=== PATIENT | male | born 1940 | race Caucasian/White ===

== ENCOUNTER 2022-04-27 00:22 | Inpatient (IN) ==
[2022-04-27 01:35] LABS: Basophils % 0.3 %; Eosinophils % 0.3 %; Hematocrit 36.8 % (37.5-50.1); Hemoglobin 12.1 g/dL (12.9-16.9); Immature Granulocytes % 0.4 % (0-4); Lymphocytes # 1.3 K/mcL (0.6-4.6); Lymphocytes % 10.8 %; Mean Corpuscular HGB Conc 32.9 g/dL (31.6-35.5); Mean Corpuscular Hemoglobin 28.9 pg (28.0-33.3); Mean Platelet Volume 9.5 fL (9.4-12.4); Monocytes # 0.7 K/mcL (0.0-1.3); Monocytes % 5.7 %; Neutrophils # 9.6 K/mcL (1.6-8.9); Platelet Count 248 K/mcL (140-400); Red Blood Count 4.18 M/mcL (4.19-5.50); Red Cell Distribution Width 12.3 % (11.5-14.5); Segmented Neutrophils % 82.5 %; White Blood Count 11.7 K/mcL (4.3-11.1)
[2022-04-27] MEDS: *HR* Labetalol 20 MG/4 ML SYRINGE IVP PRN ×2 (01:40→11:05)
[2022-04-27 02:02] LABS: Alanine Aminotransferase 15 Units/L (7-52); Albumin 3.4 g/dL (3.5-5.7); Albumin/Globulin Ratio 0.9 (1.1-2.2); Alkaline Phosphatase 59 Units/L (34-104); Aspartate Amino Transferase 15 Units/L (13-39); BUN/Creatinine Ratio 30 (6-26); Bilirubin,Total 0.9 mg/dL (0.3-1.0); Blood Urea Nitrogen 24 mg/dL (8-23); Carbon Dioxide 24 mEq/L (23-29); Chloride 81 mEq/L (98-107); Globulin 3.8 g/dL (2.4-3.5); Glucose 128 mg/dL (70-105); Osmolality,Calculated 340 (280-300); Sodium 162 mEq/L (136-145); Total Protein 7.2 g/dL (6.4-8.9); Troponin I 0.22 ng/mL (< 0.04); eGFR For African Americans > 60 (> 60); eGFR For Non-African Americans > 60 (> 60)
[2022-04-27] MEDS ORDERED: Iopamidol - 370 500 ML MLS IVP ONE (02:29)
[2022-04-27] MEDS ORDERED: 0.9 % Sodium Chloride 1,000 ML IV ONE (02:29)
[2022-04-27] MEDS ORDERED: Nitroglycerin 1 INCH/GM PACKET TP ONE (02:30)
[2022-04-27] MEDS ORDERED: Aspirin 81 MG TAB.CHEW PO ONE (02:30)
[2022-04-27 02:49] LABS: Bilirubin,Urine Negative (Negative); Blood,Urine Moderate (Negative); Clarity,Urine Clear (Clear); Color,Urine Light-Yellow (Yellow); Glucose,Urine (UA) Normal (Normal); Ketones,Urine 10 mg/dL (Negative); Leukocyte Esterase,Urine Negative (Negative); Mucus,Urine Few per lpf (None-Few); Nitrite,Urine Negative (Negative); PH,Urine 7.5 pH Units (5.0-8.0); Protein,Urine >=600 mg/dL (Neg-Trace); RBC,Urine 15-30 per hpf (0-3); Squamous Epithelial Cell,Urine Few per hpf (None-Few); Urobilinogen,Urine Normal (Normal); WBC,Urine 0-3 per hpf (0-3)
[2022-04-27] MEDS ORDERED: methylPREDNISolone 125 MG/2 ML VIAL IVP ONE (03:27)
[2022-04-27] MEDS ORDERED: Furosemide 40 MG/4 ML VIAL IVP ONE ×3 (03:27→13:57)
[2022-04-27] MEDS ORDERED: Ipratropium/Albuterol Neb 3 ML IH ONE (03:27)
[2022-04-27] MEDS ORDERED: Furosemide 20 MG/2 ML VIAL IVP ONE (03:30)
[2022-04-27] MEDS ORDERED: Furosemide 60 MG in 0.9 % Sodium Chloride 50 ML IV ONE (03:34)
[2022-04-27] MEDS ORDERED: *HR* Heparin 5,000 UNIT/ML VIAL IVP ONE ×2 (04:38→05:09)
[2022-04-27] MEDS ORDERED: Heparin 25,000UNIT/250ML 1/2NS 25,000 UNIT/250 ML IV.SOLN IVC SCH (04:45)
[2022-04-27] MEDS ORDERED: Naloxone 0.4 MG/ML INJ IVP PRN (04:53)
[2022-04-27] MEDS ORDERED: *HR* Heparin 5,000 UNIT/ML VIAL IVP PRN (05:09)
[2022-04-27] MEDS: Heparin 25,000UNIT/250ML 1/2NS 25,000 UNIT/250 ML IV.SOLN IVC SCH (05:20)
[2022-04-27] MEDS ORDERED: Perflutren Lipid Microsphere 1.3 ML in 0.9 % Sodium Chloride 8.7 ML IVP PRN (05:21)
[2022-04-27] MEDS: Ondansetron 4 MG/2 ML VIAL IVP PRN ×2 (05:25→13:55)
[2022-04-27 05:31] LABS: Heparin anti-factor XA UFH < 0.04 IU/mL (0.30-0.70); INR 1.3; Prothrombin Time 14.4 Seconds (9.4-12.1)
[2022-04-27 05:54] LABS: Alanine Aminotransferase 17 Units/L (7-52); Albumin 3.8 g/dL (3.5-5.7); Albumin/Globulin Ratio 0.8 (1.1-2.2); Alkaline Phosphatase 75 Units/L (34-104); Aspartate Amino Transferase 21 Units/L (13-39); BUN/Creatinine Ratio 26 (6-26); Bilirubin,Total 1.4 mg/dL (0.3-1.0); Blood Urea Nitrogen 26 mg/dL (8-23); Calcium 9.7 mg/dL (8.6-10.3); Carbon Dioxide 28 mEq/L (23-29); Chloride 97 mEq/L (98-107); Globulin 4.5 g/dL (2.4-3.5); Glucose 176 mg/dL (70-105); Magnesium 1.7 mg/dL (1.6-2.6); Osmolality,Calculated 297 (280-300); Phosphorous 2.5 mg/dL (2.7-4.5); Sodium 139 mEq/L (136-145); Total Protein 8.3 g/dL (6.4-8.9); Troponin I 1.13 ng/mL (< 0.04); eGFR For African Americans > 60 (> 60); eGFR For Non-African Americans > 60 (> 60)
[2022-04-27 06:04] LABS: Adenovirus Not Detected (Not Detect); Bordetella Pertussis Not Detected (Not Detect); Chlamydophila pneumoniae Not Detected (Not Detect); Coronavirus 229E Not Detected (Not Detect); Coronavirus HKU1 Not Detected (Not Detect); Coronavirus NL63 Not Detected (Not Detect); Coronavirus OC43 Not Detected (Not Detect); Human Metapneumovirus Not Detected (Not Detect); Human Rhinovirus/Enterovirus Not Detected (Not Detect); Influenza A Subtype 2009 H1 Not Detected (Not Detect); Influenza B Not Detected (Not Detect); Mycoplasma pneumoniae Not Detected (Not Detect); Parainfluenza Virus 1 Not Detected (Not Detect); Parainfluenza Virus 2 Not Detected (Not Detect); Parainfluenza Virus 3 Not Detected (Not Detect); Parainfluenza Virus 4 Not Detected (Not Detect); Respiratory Syncytial Virus Not Detected (Not Detect); SARS-CoV-2 Not Detected (Not Detect)
[2022-04-27 08:20] LABS: Hematocrit 38.9 % (37.5-50.1); Hemoglobin 12.4 g/dL (12.9-16.9); Mean Corpuscular HGB Conc 31.9 g/dL (31.6-35.5); Mean Corpuscular Hemoglobin 28.2 pg (28.0-33.3); Mean Corpuscular Volume 88.6 fL (83.0-100.0); Mean Platelet Volume 9.7 fL (9.4-12.4); Platelet Count 271 K/mcL (140-400); Red Blood Count 4.39 M/mcL (4.19-5.50); Red Cell Distribution Width 12.3 % (11.5-14.5)
[2022-04-27 08:21] LABS: White Blood Count 17.7 K/mcL (4.3-11.1)
[2022-04-27 08:30] LABS: Heparin anti-factor XA UFH 0.38 IU/mL (0.30-0.70)
[2022-04-27 08:31] LABS: INR 1.3; Prothrombin Time 14.3 Seconds (9.4-12.1)
[2022-04-27] MEDS ORDERED: traZODone 50 MG TABLET PO SCH (09:00)
[2022-04-27] MEDS ORDERED: Furosemide 40 MG/4 ML VIAL ONE (10:18)
[2022-04-27] MEDS: Furosemide 40 MG/4 ML VIAL IVP SCH ×2 (10:32→17:13)
[2022-04-27] MEDS: Pantoprazole 40 MG VIAL IVP SCH ×2 (10:33→17:14)
[2022-04-27] MEDS: Sucralfate 1 GM TABLET PO SCH ×2 (10:44→17:13)
[2022-04-27] MEDS: carvediloL 25 MG TABLET PO SCH ×2 (10:45→17:13)
[2022-04-27] MEDS: Aspirin 81 MG TAB.CHEW PO SCH (10:45)
[2022-04-27] MEDS: Carbidopa/Levodopa 25/100 TABLET PO SCH ×3 (10:57→20:07)
[2022-04-27] MEDS ORDERED: Morphine Sulfate 2 MG/ML SYRINGE IVP ONE (13:33)
[2022-04-27] MEDS ORDERED: *HR* FentaNYL (PF) 100 MCG/2 ML VIAL ONE (14:36)
[2022-04-27] MEDS ORDERED: *HR* Heparin 10,000 UNIT/10 ML VIAL ONE ×2 (14:36→15:00)
[2022-04-27] MEDS ORDERED: 0.9 % Sodium Chloride 1,000 ML ONE (14:36)
[2022-04-27] MEDS ORDERED: Heparin 1,000 UNITS/500 mL 500 ML ONE (14:36)
[2022-04-27] MEDS ORDERED: *HR* Midazolam HCl 2 MG/2 ML VIAL ONE (14:36)
[2022-04-27] MEDS ORDERED: Iopamidol - 370 200 ML INFUS..BTL ONE (14:36)
[2022-04-27] MEDS ORDERED: Nitroglycerin 1,000 MCG/5 ML VIAL IV ONE (14:37)
[2022-04-27] MEDS ORDERED: Ondansetron 4 MG/2 ML VIAL IVP PRN (15:02)
[2022-04-27] MEDS ORDERED: Prochlorperazine 10 MG/2 ML VIAL IVP PRN (15:03)
[2022-04-27] MEDS ORDERED: 0.9 % Sodium Chloride 500 ML IVC SCH (17:00)
[2022-04-27] MEDS: Piperacillin/Tazobactam 3.375 GM in 0.9 % Sodium Chloride Mini Bag 100 ML IVPB SCH (17:12)
[2022-04-27] MEDS ORDERED: polyethylene glycoL 3350 17 GM POWD.PACK PO PRN (19:06)
[2022-04-27] MEDS: Azithromycin 500 MG in 0.9 % Sodium Chloride 250 ML IVPB SCH (19:50)
[2022-04-27] MEDS ORDERED: Azithromycin 500 MG VIAL ONE (19:59)
[2022-04-27] MEDS: ALPRAZolam 0.5 MG TABLET PO SCH (20:06)
[2022-04-27] MEDS: hydrALAZINE 25 MG TABLET PO SCH (20:07)
[2022-04-28 04:25] LABS: Hematocrit 34.2 % (37.5-50.1); Mean Corpuscular HGB Conc 32.2 g/dL (31.6-35.5); Mean Corpuscular Hemoglobin 28.5 pg (28.0-33.3); Mean Corpuscular Volume 88.6 fL (83.0-100.0); Mean Platelet Volume 9.7 fL (9.4-12.4); Platelet Count 237 K/mcL (140-400); Red Blood Count 3.86 M/mcL (4.19-5.50); Red Cell Distribution Width 12.6 % (11.5-14.5); White Blood Count 15.6 K/mcL (4.3-11.1)
[2022-04-28 04:51] LABS: Magnesium 2.2 mg/dL (1.6-2.6); Phosphorous 4.3 mg/dL (2.7-4.5); Potassium 3.2 mEq/L (3.5-5.1)
[2022-04-28] MEDS: Pantoprazole 40 MG VIAL IVP SCH ×2 (06:25→17:35)
[2022-04-28] MEDS: ALPRAZolam 0.5 MG TABLET PO SCH ×2 (09:06→20:54)
[2022-04-28] MEDS: carvediloL 25 MG TABLET PO SCH (09:06)
[2022-04-28] MEDS: Furosemide 40 MG/4 ML VIAL IVP SCH (09:07)
[2022-04-28] MEDS: Aspirin 81 MG TAB.CHEW PO SCH (09:07)
[2022-04-28] MEDS: Carbidopa/Levodopa 25/100 TABLET PO SCH ×3 (09:07→23:10)
[2022-04-28] MEDS: Piperacillin/Tazobactam 3.375 GM in 0.9 % Sodium Chloride Mini Bag 100 ML IVPB SCH ×4 (09:07→23:09)
[2022-04-28] MEDS: hydrALAZINE 25 MG TABLET PO SCH ×3 (09:07→23:09)
[2022-04-28] MEDS: Sucralfate 1 GM TABLET PO SCH ×2 (09:07→17:34)
[2022-04-28 17:09] LABS: Protein/Creatinine Ratio,Urine 2.08 mg/mg (0.00-0.20); Sodium, Urine 61.8 mEq/L
[2022-04-28] MEDS: carvediloL 6.25 MG TABLET PO SCH (17:34)
[2022-04-28] MEDS: Azithromycin 500 MG in 0.9 % Sodium Chloride 250 ML IVPB SCH (20:53)
[2022-04-28] MEDS: Clotrimazole 1% CRM 15 GM TUBE TP SCH (21:00)
[2022-04-29] MEDS: Heparin 25,000UNIT/250ML 1/2NS 25,000 UNIT/250 ML IV.SOLN IVC SCH ×2 (01:36→07:29)
[2022-04-29 05:13] LABS: Hematocrit 32.2 % (37.5-50.1); Hemoglobin 10.4 g/dL (12.9-16.9); Mean Corpuscular HGB Conc 32.3 g/dL (31.6-35.5); Mean Corpuscular Hemoglobin 28.5 pg (28.0-33.3); Mean Corpuscular Volume 88.2 fL (83.0-100.0); Mean Platelet Volume 10.1 fL (9.4-12.4); Platelet Count 221 K/mcL (140-400); Red Blood Count 3.65 M/mcL (4.19-5.50); Red Cell Distribution Width 12.6 % (11.5-14.5); White Blood Count 15.3 K/mcL (4.3-11.1)
[2022-04-29] MEDS: Pantoprazole 40 MG VIAL IVP SCH ×2 (05:13→17:02)
[2022-04-29 05:32] LABS: BUN/Creatinine Ratio 29 (6-26); Blood Urea Nitrogen 40 mg/dL (8-23); Calcium 8.4 mg/dL (8.6-10.3); Carbon Dioxide 29 mEq/L (23-29); Chloride 99 mEq/L (98-107); Glucose 104 mg/dL (70-105); Osmolality,Calculated 296 (280-300); Sodium 138 mEq/L (136-145); eGFR For African Americans > 60 (> 60); eGFR For Non-African Americans 50 (> 60)
[2022-04-29 05:33] LABS: Complement C3 109 mg/dL (87-200)
[2022-04-29] MEDS ORDERED: Potassium Chloride Elixir 20 MEQ/15 ML UDC PO ONE (06:27)
[2022-04-29] MEDS: Aspirin 81 MG TAB.CHEW PO SCH (07:28)
[2022-04-29] MEDS: carvediloL 6.25 MG TABLET PO SCH ×3 (07:28→17:34)
[2022-04-29] MEDS: Sucralfate 1 GM TABLET PO SCH ×2 (07:28→16:52)
[2022-04-29] MEDS: Carbidopa/Levodopa 25/100 TABLET PO SCH ×3 (07:28→20:23)
[2022-04-29] MEDS: ALPRAZolam 0.5 MG TABLET PO SCH ×2 (07:29→20:23)
[2022-04-29] MEDS: hydrALAZINE 25 MG TABLET PO SCH ×3 (07:29→23:52)
[2022-04-29] MEDS: Clotrimazole 1% CRM 15 GM TUBE TP SCH ×2 (07:29→20:24)
[2022-04-29] MEDS: Piperacillin/Tazobactam 3.375 GM in 0.9 % Sodium Chloride Mini Bag 100 ML IVPB SCH ×3 (07:39→23:52)
[2022-04-29] MEDS ORDERED: Perflutren Lipid Microsphere 1.3 ML in 0.9 % Sodium Chloride 8.7 ML IVP PRN (10:40)
[2022-04-29] MEDS: Azithromycin 500 MG in 0.9 % Sodium Chloride 250 ML IVPB SCH (20:22)
[2022-04-29] MEDS: Melatonin 3 MG TABLET PO PRN (23:52)
[2022-04-30 03:48] LABS: BUN/Creatinine Ratio 31 (6-26); Blood Urea Nitrogen 36 mg/dL (8-23); Calcium 8.6 mg/dL (8.6-10.3); Carbon Dioxide 29 mEq/L (23-29); Chloride 101 mEq/L (98-107); Glucose 94 mg/dL (70-105); Osmolality,Calculated 294 (280-300); Potassium 3.3 mEq/L (3.5-5.1); Sodium 138 mEq/L (136-145); eGFR For African Americans > 60 (> 60); eGFR For Non-African Americans > 60 (> 60)
[2022-04-30] MEDS: Pantoprazole 40 MG VIAL IVP SCH ×2 (06:47→17:02)
[2022-04-30] MEDS: Heparin 25,000UNIT/250ML 1/2NS 25,000 UNIT/250 ML IV.SOLN IVC SCH (06:47)
[2022-04-30] MEDS: hydrALAZINE 25 MG TABLET PO SCH ×2 (09:16→17:03)
[2022-04-30] MEDS: ALPRAZolam 0.5 MG TABLET PO SCH ×2 (09:16→19:56)
[2022-04-30] MEDS: carvediloL 6.25 MG TABLET PO SCH ×2 (09:17→17:02)
[2022-04-30] MEDS: Sucralfate 1 GM TABLET PO SCH ×2 (09:17→17:02)
[2022-04-30] MEDS: Carbidopa/Levodopa 25/100 TABLET PO SCH ×3 (09:17→20:52)
[2022-04-30] MEDS: Aspirin 81 MG TAB.CHEW PO SCH (09:17)
[2022-04-30] MEDS: Piperacillin/Tazobactam 3.375 GM in 0.9 % Sodium Chloride Mini Bag 100 ML IVPB SCH ×2 (09:18→17:02)
[2022-04-30] MEDS: Spironolactone 25 MG TABLET PO SCH (12:40)
[2022-04-30] MEDS: Clotrimazole 1% CRM 15 GM TUBE TP SCH ×2 (17:04→20:52)
[2022-04-30] MEDS: Melatonin 3 MG TABLET PO PRN (19:56)
[2022-04-30] MEDS: Azithromycin 500 MG in 0.9 % Sodium Chloride 250 ML IVPB SCH (19:57)
[2022-05-01] MEDS: Piperacillin/Tazobactam 3.375 GM in 0.9 % Sodium Chloride Mini Bag 100 ML IVPB SCH ×3 (01:12→16:58)
[2022-05-01] MEDS: hydrALAZINE 25 MG TABLET PO SCH ×4 (01:13→23:12)
[2022-05-01] MEDS: Heparin 25,000UNIT/250ML 1/2NS 25,000 UNIT/250 ML IV.SOLN IVC SCH ×2 (01:21→20:03)
[2022-05-01 03:03] LABS: BUN/Creatinine Ratio 33 (6-26); Blood Urea Nitrogen 36 mg/dL (8-23); Calcium 8.7 mg/dL (8.6-10.3); Carbon Dioxide 30 mEq/L (23-29); Chloride 100 mEq/L (98-107); Glucose 114 mg/dL (70-105); Osmolality,Calculated 293 (280-300); Potassium 3.3 mEq/L (3.5-5.1); Sodium 137 mEq/L (136-145); eGFR For African Americans > 60 (> 60); eGFR For Non-African Americans > 60 (> 60)
[2022-05-01] MEDS: Pantoprazole 40 MG VIAL IVP SCH ×2 (06:36→16:57)
[2022-05-01 07:16] LABS: Kappa Qnt Free Light Chains 58.07 mg/L (3.30-19.40); Lambda Qnt Free Light Chains 52.66 mg/L (5.71-26.30)
[2022-05-01] MEDS: Aspirin 81 MG TAB.CHEW PO SCH (07:29)
[2022-05-01] MEDS: carvediloL 6.25 MG TABLET PO SCH ×2 (07:29→16:57)
[2022-05-01] MEDS: ALPRAZolam 0.5 MG TABLET PO SCH ×2 (07:29→20:03)
[2022-05-01] MEDS: Sucralfate 1 GM TABLET PO SCH ×2 (07:29→16:57)
[2022-05-01] MEDS: Carbidopa/Levodopa 25/100 TABLET PO SCH ×3 (07:29→20:03)
[2022-05-01] MEDS: Spironolactone 25 MG TABLET PO SCH (07:29)
[2022-05-01] MEDS: Clotrimazole 1% CRM 15 GM TUBE TP SCH ×2 (07:30→20:03)
[2022-05-01 10:36] LABS: Basophils % 0.3 %; Eosinophils # 0.6 K/mcL (0.0-0.6); Eosinophils % 4.7 %; Hematocrit 30.1 % (37.5-50.1); Immature Granulocytes % 0.6 % (0-4); Lymphocytes # 2.2 K/mcL (0.6-4.6); Lymphocytes % 15.7 %; Mean Corpuscular HGB Conc 33.2 g/dL (31.6-35.5); Mean Corpuscular Hemoglobin 29.2 pg (28.0-33.3); Mean Corpuscular Volume 87.8 fL (83.0-100.0); Mean Platelet Volume 9.9 fL (9.4-12.4); Monocytes # 1.4 K/mcL (0.0-1.3); Monocytes % 10.4 %; Neutrophils # 9.3 K/mcL (1.6-8.9); Platelet Count 213 K/mcL (140-400); Red Blood Count 3.43 M/mcL (4.19-5.50); Red Cell Distribution Width 12.7 % (11.5-14.5); Segmented Neutrophils % 68.3 %; White Blood Count 13.7 K/mcL (4.3-11.1)
[2022-05-01] MEDS: Furosemide 40 MG/4 ML VIAL IVP SCH ×2 (10:51→16:57)
[2022-05-01] MEDS: Isosorbide MONOnitrate (24 HR) 30 MG TAB.ER.24H PO SCH (12:18)
[2022-05-01] MEDS ORDERED: Saline Nasal Spray 44 ML BOTTLE NS PRN (12:49)
[2022-05-01] MEDS ORDERED: Milk and Molasses Enema 200 ML RC ONE (13:00)
[2022-05-02] MEDS ORDERED: Acetaminophen 325 MG TABLET PO PRN (00:37)
[2022-05-02 03:14] LABS: Hematocrit 30.2 % (37.5-50.1); Hemoglobin 9.7 g/dL (12.9-16.9); Mean Corpuscular HGB Conc 32.1 g/dL (31.6-35.5); Mean Corpuscular Hemoglobin 28.4 pg (28.0-33.3); Mean Corpuscular Volume 88.3 fL (83.0-100.0); Mean Platelet Volume 10.3 fL (9.4-12.4); Platelet Count 231 K/mcL (140-400); Red Blood Count 3.42 M/mcL (4.19-5.50); Red Cell Distribution Width 12.8 % (11.5-14.5); White Blood Count 14.4 K/mcL (4.3-11.1)
[2022-05-02] MEDS: *HR* Heparin 5,000 UNIT/ML VIAL IVP PRN ×2 (03:16→10:31)
[2022-05-02 03:33] LABS: BUN/Creatinine Ratio 32 (6-26); Blood Urea Nitrogen 33 mg/dL (8-23); Calcium 8.6 mg/dL (8.6-10.3); Carbon Dioxide 30 mEq/L (23-29); Chloride 98 mEq/L (98-107); Glucose 108 mg/dL (70-105); Osmolality,Calculated 288 (280-300); Potassium 3.5 mEq/L (3.5-5.1); Sodium 135 mEq/L (136-145); eGFR For African Americans > 60 (> 60); eGFR For Non-African Americans > 60 (> 60)
[2022-05-02] MEDS: Pantoprazole 40 MG VIAL IVP SCH (05:12)
[2022-05-02 06:38] LABS: Alpha 2 Globulin (PEP) 0.85 g/dL (0.48-1.05); Beta Globulin (PEP) 1.07 g/dL (0.48-1.10)
[2022-05-02] MEDS: hydrALAZINE 25 MG TABLET PO SCH ×2 (06:57→16:46)
[2022-05-02] MEDS: Aspirin 81 MG TAB.CHEW PO SCH (07:59)
[2022-05-02] MEDS: Isosorbide MONOnitrate (24 HR) 30 MG TAB.ER.24H PO SCH (08:00)
[2022-05-02] MEDS: Carbidopa/Levodopa 25/100 TABLET PO SCH ×3 (08:00→22:15)
[2022-05-02] MEDS: carvediloL 6.25 MG TABLET PO SCH (08:00)
[2022-05-02] MEDS: Sucralfate 1 GM TABLET PO SCH ×2 (08:00→16:45)
[2022-05-02] MEDS: Furosemide 40 MG/4 ML VIAL IVP SCH (08:01)
[2022-05-02] MEDS: Clotrimazole 1% CRM 15 GM TUBE TP SCH ×2 (08:01→22:19)
[2022-05-02] MEDS: ALPRAZolam 0.5 MG TABLET PO SCH ×2 (08:06→22:14)
[2022-05-02 09:24] LABS: ANA IgG by ELISA NONE DETECTED (None Detected)
[2022-05-02 09:26] LABS: Immunoglobulin A 775 mg/dL (68-408); Immunoglobulin G 1613 mg/dL (768-1632); Immunoglobulin M 69 mg/dL (35-263)
[2022-05-02 09:27] LABS: IFE Reflexed IFE Done
[2022-05-02] MEDS ORDERED: 0.9 % Sodium Chloride 2,000 ML ONE (11:33)
[2022-05-02] MEDS ORDERED: Heparin 1,000 UNITS/500 mL 500 ML ONE ×2 (11:33→12:27)
[2022-05-02] MEDS ORDERED: Iopamidol - 370 200 ML INFUS..BTL ONE (11:33)
[2022-05-02] MEDS ORDERED: *HR* Heparin 10,000 UNIT/10 ML VIAL ONE (11:33)
[2022-05-02] MEDS ORDERED: Nitroglycerin 1,000 MCG/5 ML VIAL IV ONE (11:34)
[2022-05-02] MEDS ORDERED: *HR* Midazolam HCl 2 MG/2 ML VIAL ONE (12:01)
[2022-05-02] MEDS ORDERED: *HR* FentaNYL (PF) 100 MCG/2 ML VIAL ONE (12:01)
[2022-05-02] MEDS ORDERED: 0.9 % Sodium Chloride 500 ML IVC SCH (13:30)
[2022-05-02] MEDS ORDERED: carvediloL 6.25 MG TABLET PO SCH (17:00)
[2022-05-02] MEDS: Apixaban 5 MG TABLET PO SCH (22:15)
[2022-05-03] MEDS: hydrALAZINE 25 MG TABLET PO SCH ×4 (01:02→23:25)
[2022-05-03 03:52] LABS: Hematocrit 29.9 % (37.5-50.1); Hemoglobin 9.7 g/dL (12.9-16.9); Mean Corpuscular HGB Conc 32.4 g/dL (31.6-35.5); Mean Corpuscular Volume 89.5 fL (83.0-100.0); Mean Platelet Volume 10.7 fL (9.4-12.4); Platelet Count 238 K/mcL (140-400); Red Blood Count 3.34 M/mcL (4.19-5.50); Red Cell Distribution Width 12.9 % (11.5-14.5); White Blood Count 12.7 K/mcL (4.3-11.1)
[2022-05-03 04:09] LABS: BUN/Creatinine Ratio 27 (6-26); Blood Urea Nitrogen 27 mg/dL (8-23); Calcium 8.9 mg/dL (8.6-10.3); Carbon Dioxide 30 mEq/L (23-29); Chloride 100 mEq/L (98-107); Glucose 119 mg/dL (70-105); Osmolality,Calculated 292 (280-300); Potassium 3.6 mEq/L (3.5-5.1); Sodium 138 mEq/L (136-145); eGFR For African Americans > 60 (> 60); eGFR For Non-African Americans > 60 (> 60)
[2022-05-03] MEDS: ALPRAZolam 0.5 MG TABLET PO SCH ×2 (09:07→21:08)
[2022-05-03] MEDS: Carbidopa/Levodopa 25/100 TABLET PO SCH ×3 (09:07→21:08)
[2022-05-03] MEDS: Aspirin 81 MG TAB.CHEW PO SCH (09:07)
[2022-05-03] MEDS: Sucralfate 1 GM TABLET PO SCH ×2 (09:07→16:16)
[2022-05-03] MEDS: Apixaban 5 MG TABLET PO SCH ×2 (09:07→21:08)
[2022-05-03] MEDS: carvediloL 25 MG TABLET PO SCH ×2 (09:22→16:16)
[2022-05-03] MEDS: Isosorbide MONOnitrate (24 HR) 60 MG TAB.ER.24H PO SCH (09:22)
[2022-05-03] MEDS: Clotrimazole 1% CRM 15 GM TUBE TP SCH ×2 (10:32→21:08)
[2022-05-03] MEDS ORDERED: carvediloL 25 MG TABLET PO SCH (17:00)
[2022-05-04] MEDS: carvediloL 25 MG TABLET PO SCH ×2 (07:49→16:42)
[2022-05-04] MEDS: Isosorbide MONOnitrate (24 HR) 60 MG TAB.ER.24H PO SCH (07:49)
[2022-05-04] MEDS: Apixaban 5 MG TABLET PO SCH ×2 (07:49→20:19)
[2022-05-04] MEDS: Carbidopa/Levodopa 25/100 TABLET PO SCH ×3 (07:49→20:19)
[2022-05-04] MEDS: Famotidine 20 MG TABLET PO SCH ×2 (07:49→20:19)
[2022-05-04] MEDS: hydrALAZINE 25 MG TABLET PO SCH ×3 (07:49→20:19)
[2022-05-04] MEDS: Sucralfate 1 GM TABLET PO SCH ×2 (07:49→16:42)
[2022-05-04] MEDS: Aspirin 81 MG TAB.CHEW PO SCH (07:49)
[2022-05-04] MEDS: Clotrimazole 1% CRM 15 GM TUBE TP SCH (07:50)
[2022-05-04] MEDS: Furosemide 40 MG TABLET PO SCH (07:50)
[2022-05-04] MEDS ORDERED: Isosorbide MONOnitrate (24 HR) 60 MG TAB.ER.24H PO ONE (08:40)
[2022-05-04 09:58] LABS: Hematocrit 30.4 % (37.5-50.1); Hemoglobin 9.7 g/dL (12.9-16.9); Mean Corpuscular HGB Conc 31.9 g/dL (31.6-35.5); Mean Corpuscular Hemoglobin 28.9 pg (28.0-33.3); Mean Corpuscular Volume 90.5 fL (83.0-100.0); Mean Platelet Volume 10.7 fL (9.4-12.4); Platelet Count 233 K/mcL (140-400); Red Blood Count 3.36 M/mcL (4.19-5.50); Red Cell Distribution Width 13.2 % (11.5-14.5); White Blood Count 15.7 K/mcL (4.3-11.1)
[2022-05-04 10:35] LABS: BUN/Creatinine Ratio 29 (6-26); Blood Urea Nitrogen 28 mg/dL (8-23); Calcium 8.9 mg/dL (8.6-10.3); Carbon Dioxide 28 mEq/L (23-29); Chloride 97 mEq/L (98-107); Glucose 159 mg/dL (70-105); Osmolality,Calculated 287 (280-300); Potassium 3.7 mEq/L (3.5-5.1); Sodium 134 mEq/L (136-145); eGFR For African Americans > 60 (> 60); eGFR For Non-African Americans > 60 (> 60)
[2022-05-04] MEDS ORDERED: Furosemide 40 MG/4 ML VIAL IVP ONE (11:51)
[2022-05-04] MEDS ORDERED: E-Z-HD (BARIUM SULF) SUSPENSION PO ONE (16:05)
[2022-05-04] MEDS ORDERED: E-Z-PAQUE (BARIUM SULF) SUSP 1 BOTTLE PO ONE (16:05)
[2022-05-04] MEDS ORDERED: Furosemide 40 MG TABLET PO SCH (18:00)
[2022-05-04] MEDS: ALPRAZolam 0.5 MG TABLET PO SCH (20:19)
[2022-05-05] MEDS: Clotrimazole 1% CRM 15 GM TUBE TP SCH ×3 (02:18→21:30)
[2022-05-05] MEDS: Melatonin 3 MG TABLET PO PRN (02:40)
[2022-05-05] MEDS: traZODone 50 MG TABLET PO PRN (02:40)
[2022-05-05 06:25] LABS: Hematocrit 26.7 % (37.5-50.1); Hemoglobin 8.6 g/dL (12.9-16.9); Mean Corpuscular HGB Conc 32.2 g/dL (31.6-35.5); Mean Corpuscular Hemoglobin 29.2 pg (28.0-33.3); Mean Corpuscular Volume 90.5 fL (83.0-100.0); Mean Platelet Volume 10.8 fL (9.4-12.4); Platelet Count 217 K/mcL (140-400); Red Blood Count 2.95 M/mcL (4.19-5.50); Red Cell Distribution Width 13.1 % (11.5-14.5); White Blood Count 12.6 K/mcL (4.3-11.1)
[2022-05-05 06:50] LABS: BUN/Creatinine Ratio 32 (6-26); Blood Urea Nitrogen 35 mg/dL (8-23); Calcium 8.7 mg/dL (8.6-10.3); Carbon Dioxide 31 mEq/L (23-29); Chloride 96 mEq/L (98-107); Glucose 113 mg/dL (70-105); Osmolality,Calculated 285 (280-300); Sodium 133 mEq/L (136-145); eGFR For African Americans > 60 (> 60); eGFR For Non-African Americans > 60 (> 60)
[2022-05-05] MEDS: Famotidine 20 MG TABLET PO SCH ×2 (08:23→21:22)
[2022-05-05] MEDS: Sucralfate 1 GM TABLET PO SCH ×2 (08:23→16:53)
[2022-05-05] MEDS: Aspirin 81 MG TAB.CHEW PO SCH (08:23)
[2022-05-05] MEDS: carvediloL 25 MG TABLET PO SCH ×2 (08:24→16:53)
[2022-05-05] MEDS: hydrALAZINE 25 MG TABLET PO SCH ×3 (08:24→21:21)
[2022-05-05] MEDS: Isosorbide MONOnitrate (24 HR) 30 MG TAB.ER.24H PO SCH (08:24)
[2022-05-05] MEDS: Apixaban 5 MG TABLET PO SCH ×2 (08:25→21:21)
[2022-05-05] MEDS: Furosemide 40 MG TABLET PO SCH ×2 (08:25→16:53)
[2022-05-05] MEDS: Carbidopa/Levodopa 25/100 TABLET PO SCH ×3 (08:25→21:22)
[2022-05-05] MEDS: ALPRAZolam 0.5 MG TABLET PO SCH (21:21)
[2022-05-06 01:42] LABS: Hematocrit 26.7 % (37.5-50.1); Hemoglobin 8.6 g/dL (12.9-16.9); Mean Corpuscular HGB Conc 32.2 g/dL (31.6-35.5); Mean Corpuscular Hemoglobin 28.9 pg (28.0-33.3); Mean Corpuscular Volume 89.6 fL (83.0-100.0); Mean Platelet Volume 10.8 fL (9.4-12.4); Platelet Count 216 K/mcL (140-400); Red Blood Count 2.98 M/mcL (4.19-5.50); Red Cell Distribution Width 13.1 % (11.5-14.5); White Blood Count 12.3 K/mcL (4.3-11.1)
[2022-05-06 02:09] LABS: Calcium 8.9 mg/dL (8.6-10.3); Potassium 4.3 mEq/L (3.5-5.1)
[2022-05-06] MEDS: traZODone 50 MG TABLET PO PRN ×2 (02:27→23:46)
[2022-05-06] MEDS: Melatonin 3 MG TABLET PO PRN ×2 (02:27→19:53)
[2022-05-06] MEDS: carvediloL 25 MG TABLET PO SCH ×2 (08:03→17:06)
[2022-05-06] MEDS: Clotrimazole 1% CRM 15 GM TUBE TP SCH ×2 (08:11→19:54)
[2022-05-06] MEDS: Aspirin 81 MG TAB.CHEW PO SCH (08:11)
[2022-05-06] MEDS: hydrALAZINE 25 MG TABLET PO SCH ×3 (08:11→19:53)
[2022-05-06] MEDS: Apixaban 5 MG TABLET PO SCH ×2 (08:11→19:53)
[2022-05-06] MEDS: Carbidopa/Levodopa 25/100 TABLET PO SCH ×3 (08:11→19:53)
[2022-05-06] MEDS: Sucralfate 1 GM TABLET PO SCH ×2 (08:12→17:10)
[2022-05-06] MEDS: Isosorbide MONOnitrate (24 HR) 30 MG TAB.ER.24H PO SCH (08:12)
[2022-05-06] MEDS: Famotidine 20 MG TABLET PO SCH ×2 (08:12→19:52)
[2022-05-06] MEDS: ALPRAZolam 0.5 MG TABLET PO SCH (19:53)
[2022-05-07 02:46] LABS: Basophils # 0.1 K/mcL (0.0-0.2); Basophils % 0.5 %; Eosinophils # 0.5 K/mcL (0.0-0.6); Eosinophils % 4.1 %; Hematocrit 27.4 % (37.5-50.1); Hemoglobin 8.8 g/dL (12.9-16.9); Immature Granulocytes % 0.6 % (0-4); Lymphocytes % 17.2 %; Mean Corpuscular HGB Conc 32.1 g/dL (31.6-35.5); Mean Corpuscular Hemoglobin 28.9 pg (28.0-33.3); Mean Corpuscular Volume 90.1 fL (83.0-100.0); Mean Platelet Volume 11.1 fL (9.4-12.4); Monocytes # 1.3 K/mcL (0.0-1.3); Monocytes % 10.8 %; Neutrophils # 7.9 K/mcL (1.6-8.9); Platelet Count 233 K/mcL (140-400); Red Blood Count 3.04 M/mcL (4.19-5.50); Red Cell Distribution Width 13.2 % (11.5-14.5); Segmented Neutrophils % 66.8 %; White Blood Count 11.8 K/mcL (4.3-11.1)
[2022-05-07 03:08] LABS: Calcium 9.1 mg/dL (8.6-10.3); Potassium 4.3 mEq/L (3.5-5.1)
[2022-05-07] MEDS: Isosorbide MONOnitrate (24 HR) 30 MG TAB.ER.24H PO SCH (08:00)
[2022-05-07] MEDS: hydrALAZINE 25 MG TABLET PO SCH ×3 (08:00→20:41)
[2022-05-07] MEDS: Aspirin 81 MG TAB.CHEW PO SCH (08:01)
[2022-05-07] MEDS: Carbidopa/Levodopa 25/100 TABLET PO SCH ×3 (08:01→20:40)
[2022-05-07] MEDS: Sucralfate 1 GM TABLET PO SCH ×2 (08:01→17:09)
[2022-05-07] MEDS: Famotidine 20 MG TABLET PO SCH (08:01)
[2022-05-07] MEDS: Apixaban 5 MG TABLET PO SCH ×2 (08:01→20:41)
[2022-05-07] MEDS: carvediloL 25 MG TABLET PO SCH ×2 (08:01→16:44)
[2022-05-07] MEDS: Clotrimazole 1% CRM 15 GM TUBE TP SCH ×2 (08:02→20:41)
[2022-05-07] MEDS: Melatonin 3 MG TABLET PO PRN (20:40)
[2022-05-07] MEDS: ALPRAZolam 0.5 MG TABLET PO SCH (20:41)
[2022-05-08] MEDS: hydrALAZINE 25 MG TABLET PO SCH ×2 (08:23→14:49)
[2022-05-08] MEDS: Isosorbide MONOnitrate (24 HR) 30 MG TAB.ER.24H PO SCH (08:23)
[2022-05-08] MEDS: Carbidopa/Levodopa 25/100 TABLET PO SCH ×2 (08:24→14:49)
[2022-05-08] MEDS: Sucralfate 1 GM TABLET PO SCH (08:24)
[2022-05-08] MEDS: Aspirin 81 MG TAB.CHEW PO SCH (08:24)
[2022-05-08] MEDS: Furosemide 40 MG TABLET PO SCH (08:24)
[2022-05-08] MEDS: carvediloL 25 MG TABLET PO SCH (08:24)
[2022-05-08] MEDS: Apixaban 5 MG TABLET PO SCH (08:24)
[2022-05-08] MEDS ORDERED: DiphenhydraMINE CREAM 28.4 GM TUBE TP PRN (08:36)
[2022-05-08] MEDS ORDERED: Famotidine 20 MG TABLET PO SCH (09:00)
[2022-05-08] MEDS ORDERED: amLODIPine 5 MG TABLET PO SCH (09:00)
[2022-05-08 09:01] LABS: BUN/Creatinine Ratio 33 (6-26); Blood Urea Nitrogen 40 mg/dL (8-23); Calcium 9.7 mg/dL (8.6-10.3); Carbon Dioxide 30 mEq/L (23-29); Chloride 95 mEq/L (98-107); Glucose 122 mg/dL (70-105); Osmolality,Calculated 285 (280-300); Potassium 4.7 mEq/L (3.5-5.1); Sodium 132 mEq/L (136-145); eGFR For African Americans > 60 (> 60); eGFR For Non-African Americans 56 (> 60)
[2022-05-08] MEDS: Clotrimazole 1% CRM 15 GM TUBE TP SCH (09:15)
[2022-05-08 12:09] VITALS: PULSE 59; TEMP 97.1
[2022-05-08 13:55] LABS: Adenovirus Not Detected (Not Detect); Bordetella Pertussis Not Detected (Not Detect); Chlamydophila pneumoniae Not Detected (Not Detect); Coronavirus 229E Not Detected (Not Detect); Coronavirus HKU1 Not Detected (Not Detect); Coronavirus NL63 Not Detected (Not Detect); Coronavirus OC43 Not Detected (Not Detect); Human Metapneumovirus Not Detected (Not Detect); Human Rhinovirus/Enterovirus Not Detected (Not Detect); Influenza A Subtype 2009 H1 Not Detected (Not Detect); Influenza B Not Detected (Not Detect); Mycoplasma pneumoniae Not Detected (Not Detect); Parainfluenza Virus 1 Not Detected (Not Detect); Parainfluenza Virus 2 Not Detected (Not Detect); Parainfluenza Virus 3 Not Detected (Not Detect); Parainfluenza Virus 4 Not Detected (Not Detect); Respiratory Syncytial Virus Not Detected (Not Detect); SARS-CoV-2 Not Detected (Not Detect)
[2022-05-08 16:26] VITALS: BP 148/70; O2SAT 94
== END 2022-05-08 18:35 | DRG 853 ==
LOC: 2NNU 00:22 → EMEROOARM 00:22 → SUATTDRO 05:55 → 2NNU 06:40 → ICNU 17:04 → 2NENU 04-29 23:44
PROVIDERS: ADMIT Internal Medicine; ATTEND Internal Medicine

== ENCOUNTER 2022-07-29 01:48 | Inpatient (IN) ==
[2022-07-29] MEDS ORDERED: Acetaminophen IV 1,000 MG/100 ML BAG IVPB ONE (01:54)
[2022-07-29] MEDS ORDERED: Nitroglycerin 1 INCH/GM PACKET TP ONE (02:11)
[2022-07-29 02:30] LABS: ABG Base Excess 3 mEq/L (-2 to 3); ABG HCO3 27 mEq/L (21-27); ABG Oxygen Saturation 100 % (95-98); ABG PCO2 39 mmHg (35-45); ABG PH 7.45 pH Units (7.32-7.45); ABG PO2 257 mmHg (85-104); ABG TCO2 28 mEq/L (20-26)
[2022-07-29 02:47] LABS: Basophils % 0.2 %; Eosinophils # 0.1 K/mcL (0.0-0.6); Eosinophils % 0.6 %; Hematocrit 30.6 % (37.5-50.1); Hemoglobin 9.8 g/dL (12.9-16.9); Immature Granulocytes % 0.4 % (0-4); Lymphocytes # 0.9 K/mcL (0.6-4.6); Lymphocytes % 4.7 %; Mean Corpuscular Hemoglobin 28.5 pg (28.0-33.3); Monocytes # 1.3 K/mcL (0.0-1.3); Monocytes % 6.8 %; Neutrophils # 16.3 K/mcL (1.6-8.9); Platelet Count 238 K/mcL (140-400); Red Blood Count 3.44 M/mcL (4.19-5.50); Red Cell Distribution Width 12.7 % (11.5-14.5); Segmented Neutrophils % 87.3 %
[2022-07-29 02:48] LABS: Prothrombin Time 21.8 Seconds (9.4-12.1)
[2022-07-29 02:51] LABS: Activated Partial Thrombo Time 33.2 Seconds (26.0-36.0); White Blood Count 18.7 K/mcL (4.3-11.1)
[2022-07-29 02:57] LABS: Calcium 9.4 mg/dL (8.6-10.3); Potassium 3.3 mEq/L (3.5-5.1); Troponin I 0.03 ng/mL (< 0.04)
[2022-07-29] MEDS ORDERED: Cefepime HCl 2,000 MG in 0.9 % Sodium Chloride 10 ML IVP ONE (04:13)
[2022-07-29] MEDS ORDERED: Doxycycline 200 MG in 0.9 % Sodium Chloride 250 ML IVPB ONE (04:13)
[2022-07-29] MEDS ORDERED: Furosemide 40 MG/4 ML VIAL IVP ONE (04:15)
[2022-07-29] MEDS ORDERED: Acetaminophen 325 MG TABLET PO PRN (04:18)
[2022-07-29] MEDS ORDERED: Naloxone 0.4 MG/ML INJ IVP PRN (04:18)
[2022-07-29] MEDS ORDERED: Ondansetron 4 MG/2 ML VIAL IVP PRN (04:18)
[2022-07-29] MEDS ORDERED: Melatonin 3 MG TABLET PO PRN (04:18)
[2022-07-29] MEDS ORDERED: Ipratropium/Albuterol Neb 3 ML IH PRN (04:43)
[2022-07-29] MEDS ORDERED: Potassium Chloride Elixir 20 MEQ/15 ML UDC PO ONE (04:43)
[2022-07-29 06:07] LABS: Adenovirus Not Detected (Not Detect); Bordetella Pertussis Not Detected (Not Detect); Chlamydophila pneumoniae Not Detected (Not Detect); Coronavirus 229E Not Detected (Not Detect); Coronavirus HKU1 Not Detected (Not Detect); Coronavirus NL63 Not Detected (Not Detect); Coronavirus OC43 Not Detected (Not Detect); Human Metapneumovirus Not Detected (Not Detect); Human Rhinovirus/Enterovirus Not Detected (Not Detect); Influenza A Subtype 2009 H1 Not Detected (Not Detect); Influenza B Not Detected (Not Detect); Mycoplasma pneumoniae Not Detected (Not Detect); Parainfluenza Virus 1 Not Detected (Not Detect); Parainfluenza Virus 2 Not Detected (Not Detect); Parainfluenza Virus 3 Not Detected (Not Detect); Parainfluenza Virus 4 Not Detected (Not Detect); Respiratory Syncytial Virus Not Detected (Not Detect); SARS-CoV-2 Not Detected (Not Detect)
[2022-07-29] MEDS: carvediloL 25 MG TABLET PO SCH ×2 (07:33→15:23)
[2022-07-29] MEDS: Apixaban 5 MG TABLET PO SCH ×2 (08:07→20:14)
[2022-07-29] MEDS: Aspirin Enteric Coated 81 MG Tablet PO SCH (08:07)
[2022-07-29] MEDS: Carbidopa/Levodopa 25/100 TABLET PO SCH ×3 (08:07→20:13)
[2022-07-29] MEDS: Furosemide 40 MG/4 ML VIAL IVP SCH ×2 (08:07→16:08)
[2022-07-29] MEDS ORDERED: Cefepime HCl 2,000 MG in 0.9 % Sodium Chloride 10 ML IVP SCH (12:00)
[2022-07-29] MEDS: cefTRIAXone 1,000 MG in 0.9 % Sodium Chloride 10 ML IVPB SCH (16:08)
[2022-07-29] MEDS: Doxycycline 100 MG in 0.9 % Sodium Chloride Mini Bag 100 ML IVPB SCH (17:49)
[2022-07-29] MEDS ORDERED: Fluticasone Propionate Nasal 50 MCG/SPRAY BOTTLE NS PRN (18:57)
[2022-07-29] MEDS ORDERED: Lactulose Oral Soln 20 GM/30 ML UDC PO PRN ×2 (18:57→19:15)
[2022-07-29] MEDS ORDERED: polyethylene glycoL 3350 17 GM POWD.PACK PO PRN (18:57)
[2022-07-29] MEDS: Sucralfate 1 GM TABLET PO SCH (20:13)
[2022-07-29] MEDS: *HR* OxyCODONE Immed Rel 5 MG TABLET PO PRN (20:13)
[2022-07-29] MEDS: hydrALAZINE 25 MG TABLET PO SCH (20:13)
[2022-07-29] MEDS: traZODone 50 MG TABLET PO SCH (21:53)
[2022-07-30 04:10] LABS: Basophils % 0.4 %; Eosinophils # 0.3 K/mcL (0.0-0.6); Eosinophils % 2.9 %; Hematocrit 28.5 % (37.5-50.1); Hemoglobin 9.1 g/dL (12.9-16.9); Immature Granulocytes % 0.8 % (0-4); Lymphocytes # 2.3 K/mcL (0.6-4.6); Lymphocytes % 23.1 %; Mean Corpuscular HGB Conc 31.9 g/dL (31.6-35.5); Mean Corpuscular Hemoglobin 28.8 pg (28.0-33.3); Mean Corpuscular Volume 90.2 fL (83.0-100.0); Mean Platelet Volume 9.5 fL (9.4-12.4); Monocytes % 9.9 %; Neutrophils # 6.2 K/mcL (1.6-8.9); Platelet Count 212 K/mcL (140-400); Red Blood Count 3.16 M/mcL (4.19-5.50); Red Cell Distribution Width 13.1 % (11.5-14.5); Segmented Neutrophils % 62.9 %; White Blood Count 9.9 K/mcL (4.3-11.1)
[2022-07-30 04:17] LABS: INR 2.3; Prothrombin Time 25.2 Seconds (9.4-12.1)
[2022-07-30 04:30] LABS: Albumin 3.2 g/dL (3.5-5.7); Albumin/Globulin Ratio 0.9 (1.1-2.2); Bilirubin,Total 0.4 mg/dL (0.3-1.0); Calcium 8.7 mg/dL (8.6-10.3); Globulin 3.4 g/dL (2.4-3.5); Magnesium 1.4 mg/dL (1.6-2.6); Potassium 3.6 mEq/L (3.5-5.1); Total Protein 6.6 g/dL (6.4-8.9)
[2022-07-30] MEDS ORDERED: Magnesium Sulfate 1 GM/102 ML PIGGYBACK IVPB ONE (04:48)
[2022-07-30] MEDS: Doxycycline 100 MG in 0.9 % Sodium Chloride Mini Bag 100 ML IVPB SCH ×2 (05:57→16:15)
[2022-07-30] MEDS: hydrALAZINE 25 MG TABLET PO SCH ×3 (07:35→20:11)
[2022-07-30] MEDS: Sucralfate 1 GM TABLET PO SCH ×2 (07:36→20:11)
[2022-07-30] MEDS: Aspirin Enteric Coated 81 MG Tablet PO SCH (07:36)
[2022-07-30] MEDS: Furosemide 40 MG/4 ML VIAL IVP SCH ×2 (07:36→16:15)
[2022-07-30] MEDS: Apixaban 5 MG TABLET PO SCH ×2 (07:36→20:11)
[2022-07-30] MEDS: Carbidopa/Levodopa 25/100 TABLET PO SCH ×3 (07:36→20:11)
[2022-07-30] MEDS: carvediloL 25 MG TABLET PO SCH ×2 (07:37→15:56)
[2022-07-30] MEDS: Finasteride 5 MG TABLET PO SCH (07:42)
[2022-07-30] MEDS: *HR* OxyCODONE Immed Rel 5 MG TABLET PO PRN (07:42)
[2022-07-30] MEDS: Isosorbide MONOnitrate (24 HR) 60 MG TAB.ER.24H PO SCH (07:42)
[2022-07-30] MEDS: amLODIPine 5 MG TABLET PO SCH (07:42)
[2022-07-30] MEDS ORDERED: NON-FORMULARY MEDICATION 1 EACH EACH (Losartan Potassium [Cozaar] 100 MG Tablet) PO SCH (09:00)
[2022-07-30] MEDS: cefTRIAXone 1,000 MG in 0.9 % Sodium Chloride 10 ML IVPB SCH (15:06)
[2022-07-30] MEDS: traZODone 50 MG TABLET PO SCH (20:11)
[2022-07-31 01:15] LABS: Basophils % 0.4 %; Eosinophils # 0.3 K/mcL (0.0-0.6); Eosinophils % 2.9 %; Hematocrit 28.6 % (37.5-50.1); Hemoglobin 9.3 g/dL (12.9-16.9); Lymphocytes # 2.1 K/mcL (0.6-4.6); Lymphocytes % 19.2 %; Mean Corpuscular HGB Conc 32.5 g/dL (31.6-35.5); Mean Corpuscular Hemoglobin 28.7 pg (28.0-33.3); Mean Corpuscular Volume 88.3 fL (83.0-100.0); Mean Platelet Volume 9.8 fL (9.4-12.4); Monocytes # 1.1 K/mcL (0.0-1.3); Monocytes % 9.9 %; Neutrophils # 7.2 K/mcL (1.6-8.9); Platelet Count 242 K/mcL (140-400); Red Blood Count 3.24 M/mcL (4.19-5.50); Red Cell Distribution Width 12.9 % (11.5-14.5); Segmented Neutrophils % 66.6 %; White Blood Count 10.9 K/mcL (4.3-11.1)
[2022-07-31 01:26] LABS: INR 2.2; Prothrombin Time 24.8 Seconds (9.4-12.1)
[2022-07-31 01:35] LABS: Calcium 8.9 mg/dL (8.6-10.3); Magnesium 1.5 mg/dL (1.6-2.6); Potassium 3.5 mEq/L (3.5-5.1)
[2022-07-31] MEDS: Doxycycline 100 MG in 0.9 % Sodium Chloride Mini Bag 100 ML IVPB SCH (05:15)
[2022-07-31] MEDS: carvediloL 25 MG TABLET PO SCH (08:59)
[2022-07-31] MEDS: Sucralfate 1 GM TABLET PO SCH ×2 (09:04→22:03)
[2022-07-31] MEDS: Aspirin Enteric Coated 81 MG Tablet PO SCH (09:04)
[2022-07-31] MEDS: hydrALAZINE 25 MG TABLET PO SCH ×3 (09:05→22:02)
[2022-07-31] MEDS: Isosorbide MONOnitrate (24 HR) 60 MG TAB.ER.24H PO SCH (09:05)
[2022-07-31] MEDS: Apixaban 5 MG TABLET PO SCH ×2 (09:05→22:02)
[2022-07-31] MEDS: amLODIPine 5 MG TABLET PO SCH (09:05)
[2022-07-31] MEDS: Carbidopa/Levodopa 25/100 TABLET PO SCH ×3 (09:06→22:03)
[2022-07-31] MEDS: Finasteride 5 MG TABLET PO SCH (09:06)
[2022-07-31] MEDS: Furosemide 40 MG/4 ML VIAL IVP SCH ×2 (09:11→16:55)
[2022-07-31] MEDS: *HR* OxyCODONE Immed Rel 5 MG TABLET PO PRN ×2 (09:14→19:18)
[2022-07-31] MEDS ORDERED: amLODIPine 5 MG TABLET PO ONE (11:15)
[2022-07-31] MEDS ORDERED: Hydromorphone (Pf) [Hydromorphone Intrathecal Pump IT SCH (13:45)
[2022-07-31] MEDS: cefTRIAXone 1,000 MG in 0.9 % Sodium Chloride 10 ML IVPB SCH (14:50)
[2022-07-31] MEDS ORDERED: carvediloL 6.25 MG TABLET PO SCH (17:00)
[2022-07-31] MEDS: traZODone 50 MG TABLET PO SCH (22:02)
[2022-07-31] MEDS: Doxycycline 100 MG CAPSULE PO SCH (22:03)
[2022-08-01 03:13] LABS: Basophils # 0.1 K/mcL (0.0-0.2); Basophils % 0.7 %; Eosinophils # 0.3 K/mcL (0.0-0.6); Eosinophils % 2.8 %; Hematocrit 29.6 % (37.5-50.1); Hemoglobin 9.8 g/dL (12.9-16.9); Immature Granulocytes % 0.8 % (0-4); Lymphocytes # 2.5 K/mcL (0.6-4.6); Lymphocytes % 27.5 %; Mean Corpuscular HGB Conc 33.1 g/dL (31.6-35.5); Mean Corpuscular Hemoglobin 28.9 pg (28.0-33.3); Mean Corpuscular Volume 87.3 fL (83.0-100.0); Mean Platelet Volume 9.8 fL (9.4-12.4); Monocytes # 1.1 K/mcL (0.0-1.3); Monocytes % 11.6 %; Neutrophils # 5.2 K/mcL (1.6-8.9); Platelet Count 266 K/mcL (140-400); Red Blood Count 3.39 M/mcL (4.19-5.50); Red Cell Distribution Width 12.9 % (11.5-14.5); Segmented Neutrophils % 56.6 %; White Blood Count 9.2 K/mcL (4.3-11.1)
[2022-08-01 03:32] LABS: Calcium 9.2 mg/dL (8.6-10.3); Magnesium 1.7 mg/dL (1.6-2.6); Potassium 3.2 mEq/L (3.5-5.1)
[2022-08-01 07:01] VITALS: TEMP 97.5; O2SAT 93
[2022-08-01] MEDS ORDERED: carvediloL 6.25 MG TABLET PO SCH (08:00)
[2022-08-01] MEDS: Doxycycline 100 MG CAPSULE PO SCH (08:21)
[2022-08-01] MEDS: hydrALAZINE 25 MG TABLET PO SCH (08:21)
[2022-08-01] MEDS: Carbidopa/Levodopa 25/100 TABLET PO SCH (08:22)
[2022-08-01] MEDS: Isosorbide MONOnitrate (24 HR) 60 MG TAB.ER.24H PO SCH (08:22)
[2022-08-01] MEDS: Aspirin Enteric Coated 81 MG Tablet PO SCH (08:23)
[2022-08-01] MEDS: Finasteride 5 MG TABLET PO SCH (08:24)
[2022-08-01] MEDS: Sucralfate 1 GM TABLET PO SCH (08:25)
[2022-08-01] MEDS: Apixaban 5 MG TABLET PO SCH (08:25)
[2022-08-01] MEDS: *HR* OxyCODONE Immed Rel 5 MG TABLET PO PRN (08:51)
[2022-08-01] MEDS ORDERED: amLODIPine 5 MG TABLET PO SCH (09:00)
[2022-08-01 09:03] VITALS: PULSE 73
[2022-08-01] MEDS: Furosemide 40 MG/4 ML VIAL IVP SCH (09:12)
[2022-08-01 10:15] VITALS: BP 140/80
== END 2022-08-01 13:30 | disposition home or self-care (01) | DRG 291 ==
LOC: EMEROOARM 01:48 → 2NENU 01:48
PROVIDERS: ADMIT Internal Medicine; ATTEND Internal Medicine